=== PATIENT | male | born 1985 | race Caucasian/White ===

== ENCOUNTER 2017-04-02 11:19 | Emergency (ER) | payer BC, OTHER ==
[~2017-04-02] VITALS: Ht 182.9 cm; Wt 130.0 kg
[2017-04-02 11:32] VITALS: TEMP 36.6; Ht 182.9 cm; Wt 130.0 kg
[2017-04-02] MEDS ORDERED: SODIUM CHLORIDE 0.9% 1000ML 1,000 ML IV STA (12:17)
[2017-04-02] MEDS ORDERED: ONDANSETRON INJ 2 MG/ML 2 ML VIAL IV STA ×2 (12:17→13:00)
[2017-04-02 12:26] LABS: BASO % 0.4 %; BASO ABS # 0.03 K/uL (0-0.2); EOS % 2.2 %; EOS ABS # 0.19 K/uL (0-0.5); HEMATOCRIT 47.6 % (42-52); HEMOGLOBIN 17.3 g/dL (14.0-18.0); IG# 0.02 K/uL (0.00-0.02); LYMPH % 44.1 %; LYMPH ABS # 3.74 K/uL (1.2-3.4); MEAN CELL VOLUME 85.5 fL (80-100); MEAN CORPUSCULAR HEMOGLOBIN 31.1 pg (25-34); MEAN CORPUSCULAR HGB CONC 36.3 g/dl (32-36); MEAN PLATELET VOLUME 10.5 fL (7.4-10.4); MONO % 8.5 %; MONO ABS # 0.72 K/uL (0.11-0.59); NEUT % 44.6 %; NEUT ABS # 3.79 K/uL (1.4-6.5); PLATELET COUNT 296 K/uL (130-400); RED CELL DISTRIBUTION WIDTH CV 12.1 % (11.5-14.5); RED CELL DISTRIBUTION WIDTH SD 37.8 fL (36.4-46.3); WHITE BLOOD COUNT 8.49 K/uL (4.8-10.8)
[2017-04-02 12:33] LABS: ALBUMIN 4.1 gm/dl (3.4-5.0); CALCIUM 9.3 mg/dl (8.5-10.1); CREATININE 0.9 mg/dl (0.60-1.40); POTASSIUM 3.2 mmol/L (3.5-5.1)
[2017-04-02 12:36] LABS: TOTAL PROTEIN 7.8 gm/dl (6.4-8.2)
[2017-04-02] MEDS ORDERED: AMPH20TA2 PO (12:56)
[2017-04-02] MEDS ORDERED: ADAL1KIT INJ (12:56)
[2017-04-02] MEDS ORDERED: MULT-506 PO (12:56)
[2017-04-02] MEDS ORDERED: HYZ/10015 PO (12:56)
--- NOTE | 2017-04-02 13:34 | EMERGENCY ROOM VISIT NOTE ---
History First contact with patient: 12:10 Chief Complaint: NAUSEA Stated Complaint: NAUSEA, DIARRHEA, STOMACH PAIN, Nursing Triage Summary: pt here with nausea x 2 days. pt states he suspects having a reaction to methotrexate injections, has had 2, for arthritis. pt sent here by for iv antiemetic drugs, pt taking zofran at home with no relief. also having abd upset History of Present Illness The patient is a 31 year old male who presents to the Emergency Room via private vehicle with complaints of "nausea, diarrhea, stomach pain". The patient states that he recently began methotrexate for his underlying arthritis. He states that he has had a total of 2 injections so far. He states that his last injection was this past Wednesday. He states that after the first injection about a week ago he developed some nausea but that subsided. He states that shortly after receiving the second injection he felt nauseous, and vomited 1. He states that this persists despite oral Zofran at home. He states that he spoke with his family doctor or water treatment specialist it was recommended that he come to the emergency department for intravenous antinausea medication. He denies any fevers, chills, chest pain or shortness of breath. He notes that his stools have been hard and soft intermittently but no problems with bowel movements. Review of Systems A complete 10-point Review of Systems was discussed with the patient, with pertinent positives and negatives listed in the History of Present Illness. All remaining Review of Systems questions can be considered negative unless otherwise specified. Past Medical/Surgical History Arthritis Family History Non contributory Social History Smoking Status: Never Smoker Alcohol Use: occasionally Occupation Status: employed Current/Historical Medications Scheduled Adalimumab (Humira), 40 MG INJ WK Amphetamine-Dextroamphetamine 20MG (Adderall 20MG), 40 MG PO DAILY Hctz/Losartan (Hyzaar 25MG/100MG), 1 TAB PO QAM Multivitamin (Multivitamin), 1 TAB PO QAM Scheduled PRN Amphetamine-Dextroamphetamine 20MG (Adderall 20MG), 20 MG PO DAILY PRN for NEEDED Miscellaneous Medications None (Patient States No Home Meds) Physical Exam Vital Signs Date Time Temp Pulse Resp B/P (MAP) Pulse Ox O2 Delivery O2 Flow Rate FiO2 04/02/17 13:48 66 18 164/88 100 04/02/17 12:29 72 16 171/94 99 Room Air 04/02/17 11:32 36.6 95 16 97 Room Air Physical Exam VITAL SIGNS - Vital signs and nursing notes were reviewed. Stable. GENERAL - 31-year-old male appearing his stated age who is in no acute distress. Communicates well with provider and answers questions appropriately. SKIN - Without rashes. HEAD - NC/AT. EYES - Sclera anicteric. EARS - No deformities of external structures noted on gross examination bilaterally. LUNGS - Chest wall symmetric without accessory muscle use, intercostals retractions, or central cyanosis. Normal vesicular breath sounds CTA B/L. No wheezes, rales, or rhonchi appreciated. CARDIAC - RRR with S1/S2. No murmur, rubs, or gallops appreciated. ABDOMEN - Abdominal contour normal without pulsations or visible masses. BS normoactive all four quadrants. Minimal generalized abdominal tenderness noted throughout the abdomen. No evidence of rigid abdomen. No distention. No palpable masses, hepatosplenomegaly, or ascites noted. Medical Decision & Procedures Laboratory Results 04/02/17 11:50 Red Blood Count 5.57, Mean Corpuscular Volume 85.5, Mean Corpuscular Hemoglobin 31.1, Mean Corpuscular Hemoglobin Concent 36.3, Mean Platelet Volume 10.5, Neutrophils (%) (Auto) 44.6, Lymphocytes (%) (Auto) 44.1, Monocytes (%) (Auto) 8.5, Eosinophils (%) (Auto) 2.2, Basophils (%) (Auto) 0.4, Neutrophils # (Auto) 3.79, Lymphocytes # (Auto) 3.74, Monocytes # (Auto) 0.72, Eosinophils # (Auto) 0.19, Basophils # (Auto) 0.03 04/02/17 11:50 Test 04/02/17 11:50 White Blood Count 8.49 K/uL (4.8-10.8) Red Blood Count 5.57 M/uL (4.7-6.1) Hemoglobin 17.3 g/dL (14.0-18.0) Hematocrit 47.6 % (42-52) Mean Corpuscular Volume 85.5 fL (80-100) Mean Corpuscular Hemoglobin 31.1 pg (25-34) Mean Corpuscular Hemoglobin Concent 36.3 g/dl (32-36) Platelet Count 296 K/uL (130-400) Mean Platelet Volume 10.5 fL (7.4-10.4) Neutrophils (%) (Auto) 44.6 % Lymphocytes (%) (Auto) 44.1 % Monocytes (%) (Auto) 8.5 % Eosinophils (%) (Auto) 2.2 % Basophils (%) (Auto) 0.4 % Neutrophils # (Auto) 3.79 K/uL (1.4-6.5) Lymphocytes # (Auto) 3.74 K/uL (1.2-3.4) Monocytes # (Auto) 0.72 K/uL (0.11-0.59) Eosinophils # (Auto) 0.19 K/uL (0-0.5) Basophils # (Auto) 0.03 K/uL (0-0.2) RDW Standard Deviation 37.8 fL (36.4-46.3) RDW Coefficient of Variation 12.1 % (11.5-14.5) Immature Granulocyte % (Auto) 0.2 % Immature Granulocyte # (Auto) 0.02 K/uL (0.00-0.02) Anion Gap 5.0 mmol/L (3-11) Est Creatinine Clear Calc Drug Dose 164.3 ml/min Estimated GFR () 130.5 Estimated GFR (Non- 112.6 BUN/Creatinine Ratio 17.1 (10-20) Calcium Level 9.3 mg/dl (8.5-10.1) Total Bilirubin 0.9 mg/dl (0.2-1) Aspartate Amino Transf (AST/SGOT) 15 U/L (15-37) Alanine Aminotransferase (ALT/SGPT) 27 U/L (12-78) Alkaline Phosphatase 94 U/L (45-117) Total Protein 7.8 gm/dl (6.4-8.2) Albumin 4.1 gm/dl (3.4-5.0) Globulin 3.7 gm/dl (2.5-4.0) Albumin/Globulin Ratio 1.1 (0.9-2) Medications Administered Medications (Trade) Dose Ordered Sig/[place] Route Start Time Stop Time Status Last Admin Dose Admin Ondansetron HCl (Zofran Inj) 4 mg NOW STAT IV 04/02/17 12:17 04/02/17 12:18 DC 04/02/17 12:27 4 MG Ondansetron HCl (Zofran Inj) 4 mg NOW STAT IV 04/02/17 13:00 04/02/17 13:01 DC 04/02/17 13:05 4 MG Medical Decision Patient was seen and evaluated as above. He presents to us today with nausea following a methotrexate injection. His history certainly is concerning/ consistent with that of a reaction to the medication given that he had minimal nausea following the first injection, this seemed to of build/increase after the second injection. He is nontoxic on exam and exhibits stable vital signs. I talked with him and discussed different treatment modalities. He declined any imaging but notes that IV Zofran is okay. I did check basic labs to rule out any underlying emergent process. He was given 4 mg of Zofran, reevaluated and was feeling slightly better. He was given 4 mg and was feeling much better. Fluids were ordered, but he declined. There is no concerning leukocytosis or anemia. Patient metabolic panel reveals slight hypokalemia at 3.2, no evidence of kidney or liver failure. He appears stable for outpatient management. Here and he has Zofran ODT at home. He is to follow with his family doctor and unit control clerk to return with worsening. I do suspect he likely is experiencing a side effect of the medication. He was educated upon management, educated upon worrisome symptoms which to return, had questions answered prior to discharge, and was discharged home in good condition. In evaluation treatment this patient following differential diagnoses were obtained: Medication reaction, pancreatitis, acute cholecystitis, among others. Impression Primary Impression: Nausea Additional Impression: Hypokalemia Departure Information Dispostion Home / Self-Care Condition GOOD Referrals Daryl Chavez M.D. (PCP) Patient Instructions My [facility] [address] Additional Instructions You have been treated in the Emergency Department your Abdominal Pain and nausea. Laboratory results have helped ruled out any emergent causes for your abdominal pain which would warrant admission or surgery. Your current zofran for nausea For pain control, you can use the following [id number] medicines - Regular strength (325mg/tab) Tylenol (acetaminophen) 2 tabs every 4-6 hours as needed. Do not exceed 12 tablets in a 24 hour period. Avoid taking more than 3 grams (3000 mg) of Tylenol per day. This includes any other sources of acetaminophen you may take on a regular basis. Drink plenty of water and stay well hydrated. As with any trip to the Emergency Department, you should follow-up with your Primary Care Provider from today's visit. Return to the emergency department if your symptoms persist despite treatment plan outlined above or if the following symptoms occur: increased fevers, chills , worsening nausea/vomiting, blood in your stool or urine. Problem Qualifiers
[2017-04-02 13:48] VITALS: BP 164/88; PULSE 66; O2SAT 100
== END 2017-04-02 13:46 | disposition home or self-care (01) ==
LOC: C.EDB 11:21 → C.EDC 13:46
DX: R11.0 Nausea (principal); E87.6 Hypokalemia; M19.90 Unspecified osteoarthritis, unspecified site